=== PATIENT | female | born 1940 | race Caucasian/White ===

== ENCOUNTER 2016-09-03 15:46 | Emergency (ER) | payer OTHER ==
[~2016-09-03] VITALS: Ht 152.4 cm; Wt 59.0 kg
[~2016-09-03 15:46] MED LIST: CENTRUM SILVER1 EAC1 PO; CITRACAL + D C1 EACH PO; COMBIGAN EYE DR10 ML OP; LIPITOR20 MG PO
[2016-09-03 15:55] VITALS: BP 170/68
[2016-09-03] MEDS ORDERED: FLONASE 0.05%50 MCG NASAL (17:35)
== END 2016-09-03 17:52 | disposition home or self-care (01) ==
LOC: ER 15:46
DX: H53.9 Unspecified visual disturbance (principal); H66.92 Otitis media, unspecified, left ear; E78.5 Hyperlipidemia, unspecified; M85.80 Other specified disorders of bone density and structure, unspecified site